=== PATIENT | female | born 1965 | race Caucasian/White ===

== ENCOUNTER 2019-03-06 16:01 | Emergency (ER) | payer BC ==
[2019-03-06 17:12] LABS: #Basophils 0.1 thou/uL (0.0-0.2); #Eosinphils 0.1 thou/uL (0.0-0.7); #Lymphocytes 1.5 thou/uL (1.20-3.40); #Monocytes 0.4 thou/uL (0.11-0.59); #Neutrophils 4.4 thou/uL (1.40-6.50); %Basophils 0.8 % (0.0-1.0); %Eosinophils 1.1 % (0.0-10.0); %Lymphocytes 23.3 % (21.0-51.0); %Monocytes 6.1 % (0.0-10.0); %Neutrophils 68.6 % (42.0-75.0); Hemoglobin 12.1 g/dL (12.0-16.0); Mean Corpuscular HGB CONC 32.6 g/dL (32.0-36.0); Mean Corpuscular Hemoglobin 32.3 pg (27.0-31.0); Mean Corpuscular Volume 99.3 fL (78.0-98.0); Mean Platelet Volume 5.4 fL (7.4-10.4); Platelet Count 284 thou/uL (130-400); RBC Distribution Width 13.3 % (11.5-14.5); Red Blood Cell (RBC) Count 3.74 mill/uL (4.20-5.40); White Blood Cell (WBC) Count 6.4 thou/uL (4.8-10.8)
[2019-03-06 17:15] LABS: INR-International Normal Ratio 0.9; Prothrombin Time 12.3 SEC (12.0-14.7)
[2019-03-06 17:25] LABS: ALT (SGPT) 16 U/L (8-55); AST (SGOT) 18 U/L (5-34); Albumin 4.1 g/dL (3.5-5.0); Alkaline Phosphatase 92 U/L (40-150); Anion Gap 13 mmol/L (10-20); BUN (Urea Nitrogen) 10 mg/dL (9.8-20.1); Bilirubin, Total 0.2 mg/dL (0.2-1.2); Calc. Creatinine Clearance 0 mL/min (70-130); Calcium 8.8 mg/dL (7.8-10.44); Carbon Dioxide 23 mmol/L (22-29); Chloride 109 mmol/L (98-107); Estimated GFR-MDRD 73; Globulin 2.4 g/dL (2.4-3.5); Glucose 91 mg/dL (70-105); Potassium 3.5 mmol/L (3.5-5.1); Protein, Total 6.5 g/dL (6.0-8.3); Sodium 141 mmol/L (136-145)
--- NOTE | 2019-03-06 17:29 | CT ---
CT Brain WO Con: 03/06/2019 4:42 PM CLINICAL HISTORY: Seizure. Loss of consciousness COMPARISON: None. FINDINGS: Hemorrhage: None. Ventricular system: Normal in size and morphology for the patient's age. Cerebral parenchyma: Normal Midline shift: None. Mass: No mass effect. Calvarium: Normal. Visualized Paranasal sinuses: Clear. IMPRESSION: No acute intracranial abnormalities.
--- NOTE | 2019-03-06 17:35 | CT ---
CT Cervical Spine WO Con Indication: Pain/Injury COMPARISON: None FINDINGS: Acute fracture/subluxation: None Spinal alignment: No acute malalignment. Vertebral body heights: Maintained. Cervical spine degenerative change: Mild IMPRESSION: No acute osseous abnormality.
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
== END 2019-03-06 19:30 | disposition home or self-care (01) ==
LOC: MADERS 16:01
DX: M54.2 Cervicalgia (principal); F41.9 Anxiety disorder, unspecified; F32.9 Major depressive disorder, single episode, unspecified; Z79.899 Other long term (current) drug therapy; V49.9XXA Car occupant (driver) (passenger) injured in unspecified traffic accident, initial encounter
CPT/HCPCS: 36415; 70450; 71045; 72125; 72170; 80053; 85025; 85610; G0390